=== PATIENT | female | born 1990 ===

== ENCOUNTER → 2018-08-30 | Outpatient (CLI) | payer SELFPAY ==
[~2018-08-30] MED LIST: Verotin-Gr Cap1 EACH PO
== END | disposition home or self-care (01) ==
LOC: LAB SHORT 11:57 → LAB 11:57
PROVIDERS: Obstetrics & Gynecology
DX: Z01.419 Encounter for gynecological examination (general) (routine) without abnormal findings (principal)
CPT/HCPCS: G0123

== ENCOUNTER → 2019-09-02 | Outpatient (CLI) | payer BC ==
[2019-09-03 12:33] LABS: G. vaginalis (DNA Probe) Negative (NEGATIVE); T. vaginalis (DNA Probe) Negative (NEGATIVE)
[2019-09-03 12:34] LABS: Candida species (DNA Probe) Positive (NEGATIVE)
== END | disposition home or self-care (01) ==
LOC: LAB SHORT 16:15 → LAB 16:15
PROVIDERS: Obstetrics & Gynecology
DX: R10.2 Pelvic and perineal pain (principal)
CPT/HCPCS: 87480; 87510; 87660

== ENCOUNTER → 2019-12-03 | Outpatient (CLI) | payer BC ==
[~2019-12-03] MED LIST changes: +IBUP800 PO
== END | disposition home or self-care (01) ==
LOC: LAB SHORT 15:30 → LAB 15:30
DX: Z34.83 Encounter for supervision of other normal pregnancy, third trimester (principal)
CPT/HCPCS: 87081; 87653

== ENCOUNTER → 2021-04-21 | Outpatient (CLI) | payer BC ==
[2021-04-22 15:07] LABS: HPV 16 Negative (Negative); HPV 18 Negative (Negative); HPV OTHER HR TYPES Negative (Negative)
== END | disposition home or self-care (01) ==
LOC: LAB 13:02 → LAB SHORT 13:02
PROVIDERS: Obstetrics & Gynecology
DX: Z01.419 Encounter for gynecological examination (general) (routine) without abnormal findings (principal)
CPT/HCPCS: 87624; G0123